=== PATIENT | male | born 1965 | race Caucasian/White ===

== ENCOUNTER 2024-07-05 17:58 | Emergency (ER) | payer SELFPAY ==
[~2024-07-05] VITALS: Ht 175.3 cm; Wt 66.7 kg
[2024-07-05 18:55] LABS: BASOPHILS # (AUTO) 0.02 K/uL (0.00-0.20); BASOPHILS % (AUTO) 0.4 % (0.0-5.0); EOSINOPHILS # (AUTO) 0.03 K/uL (0.00-0.70); EOSINOPHILS % (AUTO) 0.7 % (0.0-8.0); IMMATURE GRANULOCYTE ABSOLUTE 0.01 K/uL (0-1); LYMPHOCYTES # (AUTO) 0.8 K/uL (1.0-4.8); LYMPHOCYTES % (AUTO) 18.1 % (21.0-51.0); MEAN CORPUSCULAR HEMOGLOBIN 33.4 pg (27.0-33.0); MEAN CORPUSCULAR HGB CONC 34.2 g/dL (32.0-36.0); MEAN CORPUSCULAR VOLUME 97.7 fL (79-99); MONOCYTES # (AUTO) 0.5 K/uL (0.1-1.0); MONOCYTES % (AUTO) 12.1 % (3.0-13.0); NEUTROPHILS # (AUTO) 3.1 K/uL (1.8-7.7); NEUTROPHILS % (AUTO) 68.5 % (40.0-77.0); PLATELET COUNT (AUTO) 146 K/uL (130-400); WHITE BLOOD COUNT (AUTO) 4.5 K/uL (4.8-10.8)
[2024-07-05 19:05] LABS: CREATININE 0.9 mg/dL (0.5-1.3); POTASSIUM 4.5 mmol/L (3.5-5.1)
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
[2024-07-05] MEDS ORDERED: CEPH500B PO (19:58)
--- NOTE | 2024-07-05 21:14 | NUR ---
DC DELAY DUE TO PEND MED
[2024-07-05] MEDS: cefTRIAXone 1G VIAL IM ONE (21:18)
[2024-07-05] MEDS: DIPH,PERTUSS(ACELL),TET VAC/PF 0.5 ML VIAL IM ONE (21:19)
[2024-07-05 21:31] VITALS: BP 165/74; PULSE 66; RESP 18; TEMP 98.4; O2SAT 98
== END 2024-07-05 21:39 | disposition home or self-care (01) ==
LOC: EDH 17:58
DX: T23.002A Burn of unspecified degree of left hand, unspecified site, initial encounter (principal); S60.512A Abrasion of left hand, initial encounter; Z88.0 Allergy status to penicillin; X08.8XXA Exposure to other specified smoke, fire and flames, initial encounter; Y93.89 Activity, other specified; Y92.89 Other specified places as the place of occurrence of the external cause; Y99.8 Other external cause status
CPT/HCPCS: 99284; 80048; 85025; 36415; 90715; 96372; 90471; J0696